=== PATIENT | male | born 1950 | race Caucasian/White ===

== ENCOUNTER 2020-04-09 17:53 | Inpatient (IN) ==
[2020-04-09] MEDS ORDERED: CEFEPIME 2,000 MG/20 ML VIAL IV STA (18:10)
[2020-04-09] MEDS ORDERED: ACETAMINOPHEN 500 MG TAB PO STA (18:10)
[2020-04-09] MEDS ORDERED: SODIUM CHLORIDE 0.9% 1000ML 1,000 ML IV SCH (18:15)
--- NOTE | 2020-04-09 18:15 | Emergency Department Note ---
Impression & Plan Weakness, Anemia, Fever, Babesiosis ED Provider Note NAME: ELLY CHING AGE: 69 SEX: M : 1950 ARRIVES VIA: Walk-In INFORMANT: [Patient] ED PROVIDER(S): [Rudy Pugh MD] CHIEF COMPLAINT: Weakness and chills HISTORY OF PRESENT ILLNESS: The patient is a 69-year-old male who states he has felt poorly since this March 15, he has been sick for 15 days. He has had weakness, chills, fatigue. His body and joints ache. No stuffy nose, no sore throat, no cough or cold or congestion. No shortness of breath. No persistent nausea, no diarrhea, no urinary complaints. He has not noticed a rash. No known tick bites. The patient has had no known coronavirus exposures. The patient states that he has had symptoms like this on and off for a year and a half, no work-up has found his issue. He is here today because he again feels poorly and is hoping we can determine the source for his complaints. REVIEW OF SYSTEMS: See HPI for pertinent positives and negatives. A total of ten systems were reviewed and were otherwise negative. PMHx/PSHx: See Below SOCIAL HISTORY: See Below. PHYSICAL EXAM: GENERAL: Patient is in no acute distress. HEENT: No acute trauma, normocephalic atraumatic, mucous membranes moist, no nasal congestion, no scleral icterus. NECK: No stridor, no adenopathy, no meningismus, trachea is midline. LUNGS: No obvious wheeze, no respiratory distress, no accessory muscle use. Normal respiratory rate. HEART: Regular rate and rhythm, equal pulses in both upper extremities. ABDOMEN: Soft, nontender, bowel sounds positive, no hernias, no peritonitis. EXTREMITIES: No cyanosis or edema, full range of motion of all the joints without pain or difficulty, no signs for acute trauma. NEUROLOGIC: Oriented x 3, no acute motor or sensory deficits, no focal weakness. SKIN: No rash, no jaundice, no diaphoresis. Rectal: Brown stool, trace heme positive. DIFFERENTIAL DIAGNOSIS: Sepsis, UTI, pneumonia, metabolic, coronavirus, Lyme disease, anaplasmosis, electrolyte abnormalities, cardiac sources, intracerebral event, toxicologic, neurologic, as well as other pathologies. EMERGENCY DEPARTMENT COURSE/PROCEDURES: ECG: Indication was weakness. The ECG shows a normal sinus rhythm with a rate of 73. There is no ST elevation, no PVCs. The QTc is 423. Continuous Cardiac Monitoring: An order was placed for continuous cardiac monitoring. The monitor shows a rate of 85 with normal sinus rhythm. MEDICAL DECISION MAKING: There is no leukocytosis. The patient is quite anemic. This is a significant drop for him looking back at previous testing. There is a normal platelet count. No coagulopathy. Renal panel testing shows some renal insufficiency which seems relatively baseline looking back at previous testing. Lactic acid level was not elevated making sepsis less likely. Procalcitonin level was somewhat elevated. No worrisome liver enzyme elevation. Lyme disease testing did return negative. Urinalysis does not show any evidence for infection. Chest film does not show pneumonia or CHF. I did speak with pathology, the findings on the blood smear were suggestive of babesiosis. The patient received IV saline for hydration. He was empirically given IV cefepime for coverage. Once the findings of babesiosis were seen, he received IV Zithromax and oral atovaquone. The patient was given oral Tylenol for his fever. I did perform a rectal exam, this was trace heme positive but his stool was brown. The patient presents with flulike symptoms. He appears to have babesiosis as the cause for his complaints. I do think given the significant anemia, and given his history that a hospitalization would be warranted. I did speak to the patient and case management. The on-call hospitalist has been consulted. Of note, a rapid coronavirus test was done, this returned negative. Past Med/Surg History Medical History HTN (hypertension) Left knee DJD (Acute) NSTEMI (non-ST elevated myocardial infarction) Family History Other Family history non-contributory Kidney disease Social History Smoking Status: Former smoker Hx Alcohol Use: Yes Alcohol type: beer Hx Substance Use: No Preferred Language: Arabic Communication Ability: Effective Administrative Services Assistant Required: Yes Beliefs That Will Affect Care: None marital status: Current Living Situation: Spouse Feels Safe at Home: Yes Allergies Allergies Allergy/AdvReac Type Severity Reaction Status Date / Time No Known Allergies Allergy Unverified 04/09/20 21:35 Home Meds Home Medications Medication Instructions Recorded Confirmed alprazolam 0.25 mg PO BID PRN 09/24/18 04/09/20 amlodipine 5 mg PO DAILY 09/24/18 04/09/20 hydrochlorothiazide 25 mg PO DAILY 09/24/18 04/09/20 metformin 500 mg PO BID 09/24/18 04/09/20 multivitamin [Multiple Vitamins] 1 tab PO DAILY 09/24/18 04/09/20 allopurinol [Zyloprim] 100 mg PO DAILY 04/09/20 04/09/20 aspirin [Aspir-81] 81 mg PO DAILY 04/09/20 04/09/20 atorvastatin [Lipitor] 20 mg PO DAILY 04/09/20 04/09/20 clonidine [[id number]] 1 patch TOPICAL WK 04/09/20 04/09/20 clopidogrel [Plavix] 75 mg PO DAILY 04/09/20 04/09/20 linagliptin [Tradjenta] 5 mg PO DAILY 04/09/20 04/09/20 Previous Rx's Medication Instructions Recorded lisinopril 20 mg PO DAILY #30 tab 09/25/18 Results & Data (ED) Vital Signs Vital Signs - 24 hr 04/09/20 17:55 04/09/20 18:45 04/09/20 19:02 Temperature 37.9 C H Temperature Source Oral Pulse Rate 85 74 Pulse Rate [Apical] 75 Pulse Rate from SpO2 Sensor Respiratory Rate 18 18 20 Respiratory Effort / Characteristics Non-Labored Non-Labored Spontaneous Respiratory Depth Normal Respiratory Pattern Regular Blood Pressure 134/69 Blood Pressure Mean 90 Blood Pressure Position Sitting Pulse Oximetry 99 100 Oxygen Delivery Method Room Air Room Air Sepsis Recent Fever Within 48 Hours No Sepsis New/Unexplained Change in Mental Status No Sepsis Action Taken by Nursing No Action Required 04/09/20 19:03 04/09/20 19:15 04/09/20 19:30 Temperature Temperature Source Pulse Rate 71 76 78 Pulse Rate [Apical] Pulse Rate from SpO2 Sensor 72 Respiratory Rate 23 21 24 Respiratory Effort / Characteristics Respiratory Depth Respiratory Pattern Blood Pressure 115/59 L 124/60 123/64 Blood Pressure Mean 74 83 72 Blood Pressure Position Pulse Oximetry 99 100 98 Oxygen Delivery Method Sepsis Recent Fever Within 48 Hours Sepsis New/Unexplained Change in Mental Status Sepsis Action Taken by Nursing 04/09/20 19:52 04/09/20 20:00 04/09/20 20:45 Temperature 37.5 C Temperature Source Oral Pulse Rate 78 75 69 Pulse Rate [Apical] Pulse Rate from SpO2 Sensor 75 70 Respiratory Rate 24 24 18 Respiratory Effort / Characteristics Respiratory Depth Respiratory Pattern Blood Pressure 101/51 L 105/42 L 124/67 Blood Pressure Mean 65 57 87 Blood Pressure Position Pulse Oximetry 100 99 100 Oxygen Delivery Method Sepsis Recent Fever Within 48 Hours Sepsis New/Unexplained Change in Mental Status Sepsis Action Taken by Nursing 04/09/20 21:30 Temperature Temperature Source Pulse Rate 80 Pulse Rate [Apical] Pulse Rate from SpO2 Sensor Respiratory Rate 20 Respiratory Effort / Characteristics Respiratory Depth Respiratory Pattern Blood Pressure Blood Pressure Mean Blood Pressure Position Pulse Oximetry 99 Oxygen Delivery Method Room Air Sepsis Recent Fever Within 48 Hours Sepsis New/Unexplained Change in Mental Status Sepsis Action Taken by [facility] Medications Current Medication List: was personally reviewed by me Laboratory Data Attestation: I reviewed the patient's lab results. Result diagrams: 04/09/20 18:45 04/09/20 18:45 Lab Results 04/09/20 04/09/20 04/09/20 Range/Units 18:45 18:45 18:45 WBC 5.71 (4.8-10.8) K/uL RBC 2.78 L (4.7-6.1) M/uL Hgb 8.8 L (14.0-18.0) g/dL Hct 25.8 L (42-52) % MCV 92.8 (80-100) fL MCH 31.7 (25-34) pg MCHC 34.1 (32-36) g/dL RDW Std Deviation 53.3 H (36.4-46.3) fL RDW Coeff of Shikha 15.8 H (11.5-14.5) % Plt Count 223 (130-400) K/uL MPV 10.2 (7.4-10.4) fL Immature Gran % (Auto) 0.9 % Neut % (Auto) 59.8 % Lymph % (Auto) 26.3 % [place] % (Auto) 12.1 % Eos % (Auto) 0.7 % Baso % (Auto) 0.2 % Neut # (Auto) 3.42 (1.4-6.5) K/uL Lymph # (Auto) 1.50 (1.2-3.4) K/uL [place] # (Auto) 0.69 H (0.11-0.59) K/uL Eos # (Auto) 0.04 (0-0.5) K/uL Baso # (Auto) 0.01 (0-0.2) K/uL Immature Gran # (Auto) 0.05 H (0.00-0.02) K/uL Blood Smear Review PT 10.9 (9.0-12.0) Seconds INR 1.0 (0.9-1.1) APTT 31.0 (21.0-31.0) Seconds PTT Ratio 1.1 Sodium 135 L (136-145) mmol/L Potassium 5.0 (3.5-5.1) mmol/L Chloride 107 (98-107) mmol/L Carbon Dioxide 20 L (21-32) mmol/L Anion Gap 7.0 (3-11) BUN 77 H (7-18) mg/dl Creatinine 2.97 H (0.6-1.4) mg/dl Est Cr Clr Drug Dosing 21.6 ml/min Est GFR ( Amer) 23.4 Est GFR (Non-Af Amer) 20.2 BUN/Creatinine Ratio 25.9 H (10-20) Glucose 116 H (70-99) mg/dl Lactate (0.4-2.0) mmol/L Calcium 8.3 L (8.5-10.1) mg/dl Magnesium 3.0 H (1.8-2.4) mg/dl Total Bilirubin 1.4 H (0.2-1) mg/dl AST 15 (15-37) U/L ALT 26 (12-78) U/L Alkaline Phosphatase 75 (45-117) U/L Troponin I < 0.015 (0-0.045) ng/ml Total Protein 7.5 (6.4-8.2) gm/dl Albumin 3.5 (3.4-5.0) gm/dl Globulin 4.0 (2.5-4.0) gm/dl Albumin/Globulin Ratio 0.9 (0.9-2) Procalcitonin (0-0.5) ng/ml Urine Color Urine Appearance (Clear) Urine pH (4.5-7.5) Ur Specific [place] (1.000-1.030) Urine Protein (Negative) Urine Glucose (UA) (Negative) Urine Ketones (Negative) Urine Blood (Negative) Urine Nitrite (Negative) Urine Bilirubin (Negative) Urine Urobilinogen (Negative) Ur Leukocyte Esterase (Negative) Lyme Disease IgG Ab (Negative) Lyme Disease IgM Ab (Negative) COVID-19 PCR (Negative) 04/09/20 04/09/20 04/09/20 Range/Units 18:45 18:45 19:53 WBC (4.8-10.8) K/uL RBC (4.7-6.1) M/uL Hgb (14.0-18.0) g/dL Hct (42-52) % MCV (80-100) fL MCH (25-34) pg MCHC (32-36) g/dL RDW Std Deviation (36.4-46.3) fL RDW Coeff of Shikha (11.5-14.5) % Plt Count (130-400) K/uL MPV (7.4-10.4) fL Immature Gran % (Auto) % Neut % (Auto) % Lymph % (Auto) % [place] % (Auto) % Eos % (Auto) % Baso % (Auto) % Neut # (Auto) (1.4-6.5) K/uL Lymph # (Auto) (1.2-3.4) K/uL [place] # (Auto) (0.11-0.59) K/uL Eos # (Auto) (0-0.5) K/uL Baso # (Auto) (0-0.2) K/uL Immature Gran # (Auto) (0.00-0.02) K/uL Blood Smear Review PT (9.0-12.0) Seconds INR (0.9-1.1) APTT (21.0-31.0) Seconds PTT Ratio Sodium (136-145) mmol/L Potassium (3.5-5.1) mmol/L Chloride (98-107) mmol/L Carbon Dioxide (21-32) mmol/L Anion Gap (3-11) BUN (7-18) mg/dl Creatinine (0.6-1.4) mg/dl Est Cr Clr Drug Dosing ml/min Est GFR ( Amer) Est GFR (Non-Af Amer) BUN/Creatinine Ratio (10-20) Glucose (70-99) mg/dl Lactate 1.4 (0.4-2.0) mmol/L Calcium (8.5-10.1) mg/dl Magnesium (1.8-2.4) mg/dl Total Bilirubin (0.2-1) mg/dl AST (15-37) U/L ALT (12-78) U/L Alkaline Phosphatase (45-117) U/L Troponin I (0-0.045) ng/ml Total Protein (6.4-8.2) gm/dl Albumin (3.4-5.0) gm/dl Globulin (2.5-4.0) gm/dl Albumin/Globulin Ratio (0.9-2) Procalcitonin 1.09 H (0-0.5) ng/ml Urine Color Yellow Urine Appearance Clear (Clear) Urine pH 5.0 (4.5-7.5) Ur Specific [place] 1.015 (1.000-1.030) Urine Protein Negative (Negative) Urine Glucose (UA) Negative (Negative) Urine Ketones Negative (Negative) Urine Blood Negative (Negative) Urine Nitrite Negative (Negative) Urine Bilirubin Negative (Negative) Urine Urobilinogen Negative (Negative) Ur Leukocyte Esterase Negative (Negative) Lyme Disease IgG Ab Negative (Negative) Lyme Disease IgM Ab Negative (Negative) COVID-19 PCR (Negative) 04/09/20 Range/Units Unknown WBC (4.8-10.8) K/uL RBC (4.7-6.1) M/uL Hgb (14.0-18.0) g/dL Hct (42-52) % MCV (80-100) fL MCH (25-34) pg MCHC (32-36) g/dL RDW Std Deviation (36.4-46.3) fL RDW Coeff of Shikha (11.5-14.5) % Plt Count (130-400) K/uL MPV (7.4-10.4) fL Immature Gran % (Auto) % Neut % (Auto) % Lymph % (Auto) % [place] % (Auto) % Eos % (Auto) % Baso % (Auto) % Neut # (Auto) (1.4-6.5) K/uL Lymph # (Auto) (1.2-3.4) K/uL [place] # (Auto) (0.11-0.59) K/uL Eos # (Auto) (0-0.5) K/uL Baso # (Auto) (0-0.2) K/uL Immature Gran # (Auto) (0.00-0.02) K/uL Blood Smear Review PT (9.0-12.0) Seconds INR (0.9-1.1) APTT (21.0-31.0) Seconds PTT Ratio Sodium (136-145) mmol/L Potassium (3.5-5.1) mmol/L Chloride (98-107) mmol/L Carbon Dioxide (21-32) mmol/L Anion Gap (3-11) BUN (7-18) mg/dl Creatinine (0.6-1.4) mg/dl Est Cr Clr Drug Dosing ml/min Est GFR ( Amer) Est GFR (Non-Af Amer) BUN/Creatinine Ratio (10-20) Glucose (70-99) mg/dl Lactate (0.4-2.0) mmol/L Calcium (8.5-10.1) mg/dl Magnesium (1.8-2.4) mg/dl Total Bilirubin (0.2-1) mg/dl AST (15-37) U/L ALT (12-78) U/L Alkaline Phosphatase (45-117) U/L Troponin I (0-0.045) ng/ml Total Protein (6.4-8.2) gm/dl Albumin (3.4-5.0) gm/dl Globulin (2.5-4.0) gm/dl Albumin/Globulin Ratio (0.9-2) Procalcitonin (0-0.5) ng/ml Urine Color Urine Appearance (Clear) Urine pH (4.5-7.5) Ur Specific [place] (1.000-1.030) Urine Protein (Negative) Urine Glucose (UA) (Negative) Urine Ketones (Negative) Urine Blood (Negative) Urine Nitrite (Negative) Urine Bilirubin (Negative) Urine Urobilinogen (Negative) Ur Leukocyte Esterase (Negative) Lyme Disease IgG Ab (Negative) Lyme Disease IgM Ab (Negative) COVID-19 PCR NEGATIVE (Negative) Administered Medications Discontinued Medications Acetaminophen (Tylenol) 1,000 mg PO NOW STA Stop: 04/09/20 18:11 Last Admin: 04/09/20 18:59 Dose: 1,000 mg Documented by: [id number] Atovaquone (Mepron) 750 mg PO NOW ONE Stop: 04/09/20 20:01 Last Admin: 04/09/20 20:46 Dose: 750 mg Documented by: [id number] Sodium Chloride (Nss 1000ml) 1,000 mls @ 999 mls/hr IV .[id number] [id number] Stop: 04/09/20 19:10 Last Infusion: 04/09/20 20:00 Dose: 0 mls/hr Documented by: [id number] Admin: 04/09/20 18:58 Dose: 999 mls/hr Documented by: [id number] Cefepime HCl (Maxipime) 2,000 mg in 20 mls @ 5 mls/min IV NOW STA; Protocol Stop: 04/09/20 18:13 Last Admin: 04/09/20 18:58 Dose: 5 mls/min Documented by: [id number] Azithromycin 500 mg/ Dextrose 255 mls @ 127.5 mls/hr IV NOW STA Stop: 04/09/20 21:51 Last Admin: 04/09/20 20:46 Dose: 127.5 mls/hr Documented by: [id number] Imaging Data Radiologist's Impression: XR chest 1V portable CLINICAL HISTORY: SEPSIS COMPARISON STUDY: Chest radiograph and chest CT September 23, 2018. FINDINGS: Lung volumes are normal. Lungs are clear. There is no pneumothorax or pleural effusion. Cardiac size is normal. Mediastinal contours are normal. There is no evidence for pulmonary edema. Incidental note is made of a left ar throplasty and postoperative findings within the proximal right humerus. The appearance of the chest is unchanged. IMPRESSION: No acute cardiopulmonary findings. Blood Pressure Blood Pressure Findings: Normal blood pressure Blood Pressure Disposition: further management by hospitalist Discharge Plan Visit Data Chief Complaint: Weakness Stated Complaint: WEAK ED Provider: Rudy Pugh Discharge Problem: Weakness, Anemia, Fever, Babesiosis Patient Disposition: Admitted As Inpatient Condition: Fair Forms Stand Alone Forms: [facility] Prescriptions Prescriptions: No Action metformin 500 mg tablet 500 mg PO BID RF: 0 amlodipine 5 mg tablet 5 mg PO DAILY RF: 0 alprazolam 0.25 mg tablet 0.25 mg PO BID PRN (Reason: Anxiety) RF: 0 hydrochlorothiazide 25 mg tablet 25 mg PO DAILY RF: 0 multivitamin [Multiple Vitamins] Tablet 1 tab PO DAILY RF: 0 lisinopril 20 mg tablet 20 mg PO DAILY Qty: 30 RF: 0 atorvastatin [Lipitor] 20 mg tablet 20 mg PO DAILY RF: 0 clonidine [[id number]-PHB-1] 0.2 mg/24 hr patch weekly 1 patch topical WK RF: 0 clopidogrel [Plavix] 75 mg tablet 75 mg PO DAILY RF: 0 allopurinol [Zyloprim] 100 mg tablet 100 mg PO DAILY RF: 0 Tradjenta 5 mg tablet 5 mg PO DAILY RF: 0 aspirin [Aspir-81] 81 mg Tablet,Delayed Release (Dr/Ec) 81 mg PO DAILY RF: 0 Referrals Referrals: Michael Lozano [Primary Care Provider] - Discharge Problem: Anemia Qualifiers: Anemia type: unspecified type Qualified Code(s): D64.9 - Anemia, unspecified Fever Qualifiers: Fever type: unspecified Qualified Code(s): R50.9 - Fever, unspecified
[2020-04-09 19:03] LABS: Hematocrit (blood only) 25.8 % (42-52); Hemoglobin 8.8 g/dL (14.0-18.0); Mean Corpuscular Hemoglobin 31.7 pg (25-34); Mean Corpuscular Hgb Conc 34.1 g/dL (32-36); Mean Corpuscular Volume 92.8 fL (80-100); Mean Platelet Volume 10.2 fL (7.4-10.4); Platelet Count 223 K/uL (130-400); RDW Coefficient of Variation 15.8 % (11.5-14.5); RDW Standard Deviation 53.3 fL (36.4-46.3); Red Blood Count 2.78 M/uL (4.7-6.1); White Blood Count 5.71 K/uL (4.8-10.8)
[2020-04-09 19:14] LABS: Partial Thromboplastin Ratio 1.1; Prothrombin Time 10.9 Seconds (9.0-12.0)
[2020-04-09 19:20] LABS: Alanine Aminotransferase 26 U/L (12-78); Albumin Level 3.5 gm/dl (3.4-5.0); Aspartate Aminotransferase 15 U/L (15-37); BUN Creatinine Ratio 25.9 (10-20); Blood Urea Nitrogen 77 mg/dl (7-18); Calcium 8.3 mg/dl (8.5-10.1); Carbon Dioxide 20 mmol/L (21-32); Chloride 107 mmol/L (98-107); Creatinine Clr Calc Pharmacy 21.6 ml/min; Est GFR (African American) 23.4; Est GFR (Non-African American) 20.2; Glucose 116 mg/dl (70-99); Sodium 135 mmol/L (136-145)
[2020-04-09 19:25] LABS: Albumin Globulin Ratio 0.9 (0.9-2); Alkaline Phosphatase 75 U/L (45-117); Bilirubin,Total 1.4 mg/dl (0.2-1); Total Protein 7.5 gm/dl (6.4-8.2); Troponin I < 0.015 ng/ml (0-0.045)
--- NOTE | 2020-04-09 19:28 | XRay Report ---
XR chest 1V portable CLINICAL HISTORY: SEPSIS COMPARISON STUDY: Chest radiograph and chest CT September 23, 2018. FINDINGS: Lung volumes are normal. Lungs are clear. There is no pneumothorax or pleural effusion. Car diac size is normal. Mediastinal contours are normal. There is no evidence for pulmonary edema. Incid ental note is made of a left arthroplasty and postoperative findings within the proximal right humeru s. The appearance of the chest is unchanged. IMPRESSION: No acute cardiopulmonary findings. ACT 112: Negative or not required by law. Electronically signed by: Clemente Saez M.D. 04/09/2020 7:27 PM
[2020-04-09 19:50] LABS: Procalcitonin 1.09 ng/ml (0-0.5)
[2020-04-09] MEDS ORDERED: AZITHROMYCIN 500 MG in DEXTROSE 5% 250 ML IV STA (19:52)
[2020-04-09 19:55] LABS: Basophils # (auto) 0.01 K/uL (0-0.2); Basophils % (auto) 0.2 %; Eosinophils # (auto) 0.04 K/uL (0-0.5); Eosinophils % (auto) 0.7 %; Immature Granulocytes # (auto) 0.05 K/uL (0.00-0.02); Immature Granulocytes % (auto) 0.9 %; Lymphocytes % (auto) 26.3 %; Monocytes # (auto) 0.69 K/uL (0.11-0.59); Monocytes % (auto) 12.1 %; Neutrophils # (auto) 3.42 K/uL (1.4-6.5); Neutrophils % (auto) 59.8 %
[2020-04-09] MEDS ORDERED: ATOVAQUONE 750 MG/5 ML UDC PO ONE (20:00)
[2020-04-09 20:03] LABS: Lyme Ab IgG w/WB Rflx Negative (Negative); Lyme Ab IgM w/WB Rflx Negative (Negative)
[2020-04-09 20:23] LABS: Appearance Urine Clear (Clear); Bilirubin Urine Negative (Negative); Blood Urine Negative (Negative); Color Urine Yellow; Glucose Urine UA Negative (Negative); Ketones Urine Negative (Negative); Leukocyte Esterase Urine Negative (Negative); Nitrite Urine Negative (Negative); Protein Urine Negative (Negative); Specific Gravity Urine 1.015 (1.000-1.030); Urobilinogen Urine Negative (Negative)
--- NOTE | 2020-04-09 22:13 | History & Physical Report ---
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 Patient with remote history of known tick bites, none recently reported. No international travel history. He is presently afebrile, HD stable and non-toxic in appearance. No respiratory complaints. Labs reveal normochromic/normocytic anemia with Hgb=8.8, Hct=25.8 (down from 15.5 and 44.9, respectively in September 2018). Other laboratory abnormalities include Mh=162, CAROL with BUN=77 and Cr=2.97. Tbili=1.4 and Procalcitonin=1.09. Lyme IgM and IgG is negative. No schistocytes noted on my review of slide. -Admit to medical floor -Awaiting results of Babesia microti IgG and IgM -Obtain parasite load, blood smear -Check Anaplasmosis DNA -Babesiosis DNA PCR has also been sent - this reportedly takes appx 4 days and will be resulted in Miscellaneous -Will treat with Atovaquone 750mg po BID and Azithromycin 500mg po BID -Monitor CBC and LFTs for concern for hemolysis. If patient's anemia clinically worsens or he has a high parasite load he may need an exchange transfusion Present on Admission?: Yes (2) HTN (hypertension): Blood pressure well controlled at present. Patient was previously admitted for hypotension thought to be secondary to medication effects + dehydration -Hold HCTZ and Lisinopril due to elevation in BUN and Cr -Continue Amlodipine -Continue Clonidine patch -Continue to monitor Present on Admission?: Yes (3) CAROL (acute kidney injury): Elevated BUN and Cr to 77 and 2.97 (prior 27 and 1.47, respectively in september 2018). ?prerenal azotemia vs result from Babesiosis infection -IVF, NSS at 80mL/hr x 2 liters -Repeat labs in AM -Avoid nephrotoxic agents -Renal dosing where appropriate Present on Admission?: Yes (4) HLD (hyperlipidemia): Chronic -Continue Atorvastatin 20mg po daily Present on Admission?: Yes (5) DMII (diabetes mellitus, type 2): Chronic. Blood sugar well controlled at 116 currently. Last HbgA1C in September 2018 = 6.8 -Hold Metformin, Linagliptin while inpatient -Check HgbA1C -Lantus 5u BID with ISS, goal blood sugar 100 - 140 F/E/N - NSS at 80mL/hr x 2 liters, electrolytes WNL, AHA/CC diet as tolerated Ppx - Low risk for DVT Code - Full Dispo - Admit to medical floor Present on Admission?: Yes Admission and Anticipated Discharge Date Admission Date: 04/09/20 Anticipated date of discharge: 04/11/20 History of Present Illness Chief Complaint: weakness, fatigue, fevers Primary Care Provider: Michael Blake Boateng is a pleasant 69yo C male with history of HTN, HLP, DM. He reports appx one year of fatigue and episodic fevers/weakness. These episodes have become more intense and frequent since 15 March 2020. He reports malaise, diffuse weakness, fevers, chills, body aches and stiff joints. Patient spends a lot of time outdoors camping at [place]. He has had tick bites in the past but none recently. He denies CP/SOB/cough/loss of taste or smell. He has not travelled recently nor been in contact with any Covid-19 positive individuals. 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 He was administered Atovaquone and Azithromycin in the ER. Rapid testing for SARS-CoV-2 - NEGATIVE ER Course: Tylenol 1gm, Atovaquone 750mg, Azithromycin 500mg IV, Cefepime 2gm IV, NSS Allergies Allergy/AdvReac Type Severity Reaction Status Date / Time No Known Allergies Allergy Unverified 04/09/20 21:35 Home Medications Home Medications Medication Instructions Recorded Confirmed Type alprazolam 0.25 mg PO BID PRN 09/24/18 04/09/20 History amlodipine 5 mg PO DAILY 09/24/18 04/09/20 History hydrochlorothiazide 25 mg PO DAILY 09/24/18 04/09/20 History metformin 500 mg PO BID 09/24/18 04/09/20 History multivitamin [Multiple Vitamins] 1 tab PO DAILY 09/24/18 04/09/20 History lisinopril 20 mg PO DAILY #30 tab 09/25/18 04/09/20 Rx allopurinol [Zyloprim] 100 mg PO DAILY 04/09/20 04/09/20 History aspirin [Aspir-81] 81 mg PO DAILY 04/09/20 04/09/20 History atorvastatin [Lipitor] 20 mg PO DAILY 04/09/20 04/09/20 History clonidine [Gvfkhqev-MSJ-1] 1 patch TOPICAL WK 04/09/20 04/09/20 History clopidogrel [Plavix] 75 mg PO DAILY 04/09/20 04/09/20 History linagliptin [Tradjenta] 5 mg PO DAILY 04/09/20 04/09/20 History Past Med/Surg History Medical History (Updated 04/09/20 @ 22:39 by Lucía Valerio DO) DMII (diabetes mellitus, type 2) HLD (hyperlipidemia) HTN (hypertension) Left knee DJD (Acute) NSTEMI (non-ST elevated myocardial infarction) Prolonged Q-T interval on ECG Surgical History (Updated 04/09/20 @ 22:09 by Lucía Valerio DO) No significant past surgical history Family History Other Family history non-contributory Kidney disease Social History Smoking Status: Former smoker Hx Alcohol Use: Yes Alcohol type: beer Hx Substance Use: No Preferred Language: Dutch Communication Ability: Effective Rn Emergency Room Required: Yes Beliefs That Will Affect Care: None marital status: Current Living Situation: Spouse Feels Safe at Home: Yes Review of Systems Review of Systems: All systems reviewed & are unremarkable except as noted in HPI & below Physical Exam Physical Exam: General: patient resting comfortably, NAD, non-toxic in appearance, AA&O x 4 Skin: warm, dry, intact, no rashes or lesions HEENT: NC/AT, PERRL, EOMI, slight scleral icterus, conjunctiva without injection, external ear normal to inspection and nontender, nares patent, moist mucus membranes, dentition intact, no oropharyngeal lesions, neck supple, trachea midline, no LAD, no thyromegaly, no JVD Heart: +S1/S2, regular, no m/r/g Lungs: equal air entry bilaterally, no rales/rhonchi/wheezes Abd: +BS, soft, NT/ND, no masses/organomegaly/ascites Ext: warm, 2+ pulses in UE/LE bilaterally, no clubbing/cyanosis or edema Neuro: nonfocal, patient AA&O x 4, speech intact, no facial droop, moving all extremities on command with equal strength 5/5 Results & Data Results & Data ([facility]) Vital Signs (Past 12 Hours) Vital Signs Temp Pulse Pulse Resp BP Pulse Ox 04/09/20 21:30 80 20 99 04/09/20 20:45 69 18 124/67 100 04/09/20 20:00 75 24 105/42 L 99 04/09/20 19:52 37.5 C 78 24 101/51 L 100 04/09/20 19:30 78 24 123/64 98 04/09/20 19:15 76 21 124/60 100 04/09/20 19:03 71 23 115/59 L 99 04/09/20 19:02 74 20 04/09/20 18:45 75 18 100 04/09/20 17:55 37.9 C H 85 18 134/69 99 Laboratory Results Lab Results 04/09/20 04/09/20 04/09/20 Range/Units 18:45 18:45 18:45 WBC 5.71 (4.8-10.8) K/uL RBC 2.78 L (4.7-6.1) M/uL Hgb 8.8 L (14.0-18.0) g/dL Hct 25.8 L (42-52) % MCV 92.8 (80-100) fL MCH 31.7 (25-34) pg MCHC 34.1 (32-36) g/dL RDW Std Deviation 53.3 H (36.4-46.3) fL RDW Coeff of Shikha 15.8 H (11.5-14.5) % Plt Count 223 (130-400) K/uL MPV 10.2 (7.4-10.4) fL Immature Gran % (Auto) 0.9 % Neut % (Auto) 59.8 % Lymph % (Auto) 26.3 % [place] % (Auto) 12.1 % Eos % (Auto) 0.7 % Baso % (Auto) 0.2 % Neut # (Auto) 3.42 (1.4-6.5) K/uL Lymph # (Auto) 1.50 (1.2-3.4) K/uL [place] # (Auto) 0.69 H (0.11-0.59) K/uL Eos # (Auto) 0.04 (0-0.5) K/uL Baso # (Auto) 0.01 (0-0.2) K/uL Immature Gran # (Auto) 0.05 H (0.00-0.02) K/uL Blood Smear Review PT 10.9 (9.0-12.0) Seconds INR 1.0 (0.9-1.1) APTT 31.0 (21.0-31.0) Seconds PTT Ratio 1.1 Sodium 135 L (136-145) mmol/L Potassium 5.0 (3.5-5.1) mmol/L Chloride 107 (98-107) mmol/L Carbon Dioxide 20 L (21-32) mmol/L Anion Gap 7.0 (3-11) BUN 77 H (7-18) mg/dl Creatinine 2.97 H (0.6-1.4) mg/dl Est Cr Clr Drug Dosing 21.6 ml/min Est GFR ( Amer) 23.4 Est GFR (Non-Af Amer) 20.2 BUN/Creatinine Ratio 25.9 H (10-20) Glucose 116 H (70-99) mg/dl Lactate (0.4-2.0) mmol/L Calcium 8.3 L (8.5-10.1) mg/dl Magnesium 3.0 H (1.8-2.4) mg/dl Total Bilirubin 1.4 H (0.2-1) mg/dl AST 15 (15-37) U/L ALT 26 (12-78) U/L Alkaline Phosphatase 75 (45-117) U/L Troponin I < 0.015 (0-0.045) ng/ml Total Protein 7.5 (6.4-8.2) gm/dl Albumin 3.5 (3.4-5.0) gm/dl Globulin 4.0 (2.5-4.0) gm/dl Albumin/Globulin Ratio 0.9 (0.9-2) Procalcitonin (0-0.5) ng/ml Urine Color Urine Appearance (Clear) Urine pH (4.5-7.5) Ur Specific [place] (1.000-1.030) Urine Protein (Negative) Urine Glucose (UA) (Negative) Urine Ketones (Negative) Urine Blood (Negative) Urine Nitrite (Negative) Urine Bilirubin (Negative) Urine Urobilinogen (Negative) Ur Leukocyte Esterase (Negative) Lyme Disease IgG Ab (Negative) Lyme Disease IgM Ab (Negative) COVID-19 PCR (Negative) 04/09/20 04/09/20 04/09/20 Range/Units 18:45 18:45 19:53 WBC (4.8-10.8) K/uL RBC (4.7-6.1) M/uL Hgb (14.0-18.0) g/dL Hct (42-52) % MCV (80-100) fL MCH (25-34) pg MCHC (32-36) g/dL RDW Std Deviation (36.4-46.3) fL RDW Coeff of Shikha (11.5-14.5) % Plt Count (130-400) K/uL MPV (7.4-10.4) fL Immature Gran % (Auto) % Neut % (Auto) % Lymph % (Auto) % [place] % (Auto) % Eos % (Auto) % Baso % (Auto) % Neut # (Auto) (1.4-6.5) K/uL Lymph # (Auto) (1.2-3.4) K/uL [place] # (Auto) (0.11-0.59) K/uL Eos # (Auto) (0-0.5) K/uL Baso # (Auto) (0-0.2) K/uL Immature Gran # (Auto) (0.00-0.02) K/uL Blood Smear Review PT (9.0-12.0) Seconds INR (0.9-1.1) APTT (21.0-31.0) Seconds PTT Ratio Sodium (136-145) mmol/L Potassium (3.5-5.1) mmol/L Chloride (98-107) mmol/L Carbon Dioxide (21-32) mmol/L Anion Gap (3-11) BUN (7-18) mg/dl Creatinine (0.6-1.4) mg/dl Est Cr Clr Drug Dosing ml/min Est GFR ( Amer) Est GFR (Non-Af Amer) BUN/Creatinine Ratio (10-20) Glucose (70-99) mg/dl Lactate 1.4 (0.4-2.0) mmol/L Calcium (8.5-10.1) mg/dl Magnesium (1.8-2.4) mg/dl Total Bilirubin (0.2-1) mg/dl AST (15-37) U/L ALT (12-78) U/L Alkaline Phosphatase (45-117) U/L Troponin I (0-0.045) ng/ml Total Protein (6.4-8.2) gm/dl Albumin (3.4-5.0) gm/dl Globulin (2.5-4.0) gm/dl Albumin/Globulin Ratio (0.9-2) Procalcitonin 1.09 H (0-0.5) ng/ml Urine Color Yellow Urine Appearance Clear (Clear) Urine pH 5.0 (4.5-7.5) Ur Specific [place] 1.015 (1.000-1.030) Urine Protein Negative (Negative) Urine Glucose (UA) Negative (Negative) Urine Ketones Negative (Negative) Urine Blood Negative (Negative) Urine Nitrite Negative (Negative) Urine Bilirubin Negative (Negative) Urine Urobilinogen Negative (Negative) Ur Leukocyte Esterase Negative (Negative) Lyme Disease IgG Ab Negative (Negative) Lyme Disease IgM Ab Negative (Negative) COVID-19 PCR (Negative) 04/09/20 Range/Units Unknown WBC (4.8-10.8) K/uL RBC (4.7-6.1) M/uL Hgb (14.0-18.0) g/dL Hct (42-52) % MCV (80-100) fL MCH (25-34) pg MCHC (32-36) g/dL RDW Std Deviation (36.4-46.3) fL RDW Coeff of Shikha (11.5-14.5) % Plt Count (130-400) K/uL MPV (7.4-10.4) fL Immature Gran % (Auto) % Neut % (Auto) % Lymph % (Auto) % [place] % (Auto) % Eos % (Auto) % Baso % (Auto) % Neut # (Auto) (1.4-6.5) K/uL Lymph # (Auto) (1.2-3.4) K/uL [place] # (Auto) (0.11-0.59) K/uL Eos # (Auto) (0-0.5) K/uL Baso # (Auto) (0-0.2) K/uL Immature Gran # (Auto) (0.00-0.02) K/uL Blood Smear Review PT (9.0-12.0) Seconds INR (0.9-1.1) APTT (21.0-31.0) Seconds PTT Ratio Sodium (136-145) mmol/L Potassium (3.5-5.1) mmol/L Chloride (98-107) mmol/L Carbon Dioxide (21-32) mmol/L Anion Gap (3-11) BUN (7-18) mg/dl Creatinine (0.6-1.4) mg/dl Est Cr Clr Drug Dosing ml/min Est GFR ( Amer) Est GFR (Non-Af Amer) BUN/Creatinine Ratio (10-20) Glucose (70-99) mg/dl Lactate (0.4-2.0) mmol/L Calcium (8.5-10.1) mg/dl Magnesium (1.8-2.4) mg/dl Total Bilirubin (0.2-1) mg/dl AST (15-37) U/L ALT (12-78) U/L Alkaline Phosphatase (45-117) U/L Troponin I (0-0.045) ng/ml Total Protein (6.4-8.2) gm/dl Albumin (3.4-5.0) gm/dl Globulin (2.5-4.0) gm/dl Albumin/Globulin Ratio (0.9-2) Procalcitonin (0-0.5) ng/ml Urine Color Urine Appearance (Clear) Urine pH (4.5-7.5) Ur Specific [place] (1.000-1.030) Urine Protein (Negative) Urine Glucose (UA) (Negative) Urine Ketones (Negative) Urine Blood (Negative) Urine Nitrite (Negative) Urine Bilirubin (Negative) Urine Urobilinogen (Negative) Ur Leukocyte Esterase (Negative) Lyme Disease IgG Ab (Negative) Lyme Disease IgM Ab (Negative) COVID-19 PCR NEGATIVE (Negative) Diagnostic Findings XR chest 1V portable CLINICAL HISTORY: SEPSIS COMPARISON STUDY: Chest radiograph and chest CT September 23, 2018. FINDINGS: Lung volumes are normal. Lungs are clear. There is no pneumothorax or pleural effusion. Cardiac size is normal. Mediastinal contours are normal. There is no evidence for pulmonary edema. Incidental note is made of a left arthroplasty and postoperative findings within the proximal right humerus. The appearance of the chest is unchanged. IMPRESSION: No acute cardiopulmonary findings. ACT 112: Negative or not required by law. Electronically signed by: Clemente Saez M.D. 04/09/2020 7:27 PM Dictated: 04/09/201925 Transcribed: 04/09/201925 ECG Additional Comments: The study shows NSR at 73bpm, normal axis, DE=491, QRS=86, UVc=038, no acute ischemic changes Code Status & VTE Plan Code Status FULL PG Care Time/CCT Total # of Minutes Spent Total Time Spent with Patient: Total time spent is greater than 50% in coordination of care (as documented) at patient's floor/unit and/or counseling patient: Coding Level of Care Code 39493 Initial Inpt Care Lvl 3 Diagnoses Babesiosis B60.0 HTN (hypertension) I10 Hypertension type: essential hypertension CAROL (acute kidney injury) N17.9 HLD (hyperlipidemia) E78.5 Hyperlipidemia type: unspecified DMII (diabetes mellitus, type 2) E11.9 Diabetes mellitus long-term insulin use: without manager long term care use Diabetes mellitus complication status: without complication (1) HTN (hypertension) Hypertension type: essential hypertension Qualified Code(s): I10 - Essential (primary) hypertension (2) HLD (hyperlipidemia) Hyperlipidemia type: unspecified Qualified Code(s): E78.5 - Hyperlipidemia, unspecified (3) DMII (diabetes mellitus, type 2) Diabetes mellitus manager long term care insulin use: without long-term use Diabetes mellitus complication status: without complication Qualified Code(s): E11.9 - Type 2 diabetes mellitus without complications
[2020-04-10] MEDS ORDERED: GLUCOSE 40% GEL 15 GM TUBE PO PRN (00:16)
[2020-04-10] MEDS ORDERED: DEXTROSE 50% 50 ML SYRINGE IV PRN (00:16)
[2020-04-10] MEDS ORDERED: CARBOHYDRATES FOR HYPOGLYCEMIA PO PRN (00:16)
[2020-04-10] MEDS ORDERED: GLUCAGON FOR INJ 1 MG VIAL SQ PRN (00:16)
[2020-04-10] MEDS ORDERED: GLUCOSE 10 TABS/TUBE PO PRN (00:16)
[2020-04-10] MEDS ORDERED: ONDANSETRON INJ 2 MG/ML 2 ML VIAL IV PRN (00:16)
[2020-04-10] MEDS: SODIUM CHLORIDE 0.9% 1000ML 1,000 ML IV SCH ×2 (00:34→12:57)
[2020-04-10] MEDS: CHECK CLONIDINE PATCH PLACEMENT SCH ×3 (00:34→16:32)
[2020-04-10 06:48] LABS: Basophils # (auto) 0.01 K/uL (0-0.2); Basophils % (auto) 0.2 %; Eosinophils # (auto) 0.01 K/uL (0-0.5); Eosinophils % (auto) 0.2 %; Hematocrit (blood only) 21.4 % (42-52); Hemoglobin 7.6 g/dL (14.0-18.0); Immature Granulocytes # (auto) 0.04 K/uL (0.00-0.02); Immature Granulocytes % (auto) 0.9 %; Lymphocytes # (auto) 1.65 K/uL (1.2-3.4); Lymphocytes % (auto) 37.4 %; Mean Corpuscular Hemoglobin 33.2 pg (25-34); Mean Corpuscular Hgb Conc 35.5 g/dL (32-36); Mean Corpuscular Volume 93.4 fL (80-100); Mean Platelet Volume 9.9 fL (7.4-10.4); Monocytes # (auto) 0.59 K/uL (0.11-0.59); Monocytes % (auto) 13.4 %; Neutrophils # (auto) 2.11 K/uL (1.4-6.5); Neutrophils % (auto) 47.9 %; Platelet Count 167 K/uL (130-400); RDW Standard Deviation 53.8 fL (36.4-46.3); Red Blood Count 2.29 M/uL (4.7-6.1); White Blood Count 4.41 K/uL (4.8-10.8)
[2020-04-10 06:55] LABS: Estimated Average Glucose 105 mg/dl; Hemoglobin A1C 5.3 % (4.5-5.6)
[2020-04-10 07:11] LABS: RBC Morphology Unremarkable
[2020-04-10 07:19] LABS: Albumin Level 2.8 gm/dl (3.4-5.0); BUN Creatinine Ratio 30.9 (10-20); Bilirubin Direct 0.3 mg/dl (0-0.2); Calcium 7.8 mg/dl (8.5-10.1); Creatinine Clr Calc Pharmacy 27.7 ml/min; Est GFR (Non-African American) 30.2; Magnesium 2.7 mg/dl (1.8-2.4); Potassium 4.9 mmol/L (3.5-5.1)
[2020-04-10 07:22] LABS: Bilirubin,Total 1.3 mg/dl (0.2-1); Total Protein 6.6 gm/dl (6.4-8.2)
--- NOTE | 2020-04-10 08:43 | Electrocardiogram Report ---
Test Reason : Blood Pressure : / mmHG Vent. Rate : 073 BPM Atrial Rate : 073 BPM P-R Int : 196 ms QRS Dur : 086 ms QT Int : 384 ms P-R-T Axes : 042 087 050 degrees QTc Int : 423 ms Normal sinus rhythm Normal ECG When compared with ECG of 25-SEP-2018 06:24, No significant change was found Confirmed by Ángel Caro ([id number]) on 04/10/2020 8:43:10 AM Referred By: REFERRED SELF Confirmed By:Ángel Caro
[2020-04-10] MEDS ORDERED: AZITHROMYCIN 500 MG in DEXTROSE 5% 250 ML IV SCH (09:00)
[2020-04-10] MEDS ORDERED: AZITHROMYCIN 250 MG TAB PO SCH (09:00)
[2020-04-10] MEDS ORDERED: hydroCHLOROthiazide 25 MG TAB PO SCH (09:00)
[2020-04-10] MEDS ORDERED: lisinopriL 20 MG TAB PO SCH (09:00)
[2020-04-10] MEDS: INSULIN ASPART 100 UNITS/ML 3 ML PEN SC SCH ×4 (09:16→20:44)
[2020-04-10] MEDS: hydroCHLOROthiazide 25 MG TAB PO SCH (09:19)
[2020-04-10] MEDS: ATORVASTATIN 20 MG TAB PO SCH (09:19)
[2020-04-10] MEDS: INSULIN GLARGINE SOLOSTAR 100 UNITS/ML 3 ML PEN SC SCH ×2 (09:19→20:43)
[2020-04-10] MEDS: CLOPIDOGREL BISULFATE 75 MG TAB PO SCH (09:20)
[2020-04-10] MEDS: MULTIVITAMIN TAB PO SCH (09:20)
[2020-04-10] MEDS: ATOVAQUONE 750 MG/5 ML UDC PO SCH ×2 (09:20→20:42)
[2020-04-10] MEDS: AMLODIPINE BESYLATE 5 MG TAB PO SCH (09:20)
[2020-04-10] MEDS: allopurinoL 100 MG TAB PO SCH (09:21)
[2020-04-10] MEDS: lisinopriL 20 MG TAB PO SCH (09:21)
[2020-04-10] MEDS: ACETAMINOPHEN 325 MG TAB PO PRN (09:30)
[2020-04-10] MEDS ORDERED: VANCOMYCIN CONSULT ACTIVE PRN ×2 (10:43)
[2020-04-10] MEDS ORDERED: VANCOMYCIN HCL 1,750 MG in SODIUM CHLORIDE 0.9% 500 ML IV ONE (11:15)
[2020-04-10 12:20] LABS: Hematocrit (blood only) 21.7 % (42-52); Hemoglobin 7.5 g/dL (14.0-18.0)
--- NOTE | 2020-04-10 13:23 | Pharmacy Report ---
Pharmacy Abx Dose Short Note - Date of Service April 10, 2020 - Assessment & Plan Assessment * 69 year old M admitted for babesiosis - receiving Azithromycin + Atovaquone * Gram positive cocci reported in 1 of 3 sets of blood cxs. Provider initiating IV vancomycin therapy - pharmacy to dose. * Gram positive cocci growing in aerobic bottle of one set. I contacted micro and they report this organism is GPC in chains, thus not likely staph - no serology testing performed. Uncertain if contaminant at this time. * Renal fxn changing. SCr improved over last 24 hrs (2.97 --> 2.13). Baseline renal fxn unclear from [facility] records. Plan Vancomycin * 1750mg x 1 loading dose given (~24mg/kg) * Patient is not a candidate for AUC dosing due to unstable renal fxn * Current estimate of half-life ~24 hrs or less. Will check random level with AM labs tomorrow ~18 hrs after this loading dose. * Goal trough level for bacteremia : 15 to 20 mcg/mL * Plan to redose when level is less than 20. Pharmacy will continue to follow and will adjust dose/frequency as necessary. Thank you.
--- NOTE | 2020-04-10 23:07 | Hospitalist Progress Note ---
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 Patient with remote history of known tick bites, none recently reported. No international travel history. He is presently afebrile, HD stable and non-toxic in appearance. No respiratory complaints. Labs reveal normochromic/normocytic anemia with Hgb=8.8, Hct=25.8 (down from 15.5 and 44.9, respectively in September 2018). Other laboratory abnormalities include Jk=146, CAROL with BUN=77 and Cr=2.97. Tbili=1.4 and Procalcitonin=1.09. Lyme IgM and IgG is negative. No schistocytes noted on my review of slide. -Admit to medical floor -Awaiting results of Babesia microti IgG and IgM -Patient has signs of babesia. will continue to treat as state below. -Babesiosis DNA PCR has also been sent - this reportedly takes appx 4 days and will be resulted in Miscellaneous -Will treat with Atovaquone 750mg po BID and Azithromycin 500mg po BID -Hemoglobin has been stable. will continue to monitor. (2) HTN (hypertension): Blood pressure well controlled at present. Patient was previously admitted for hypotension thought to be secondary to medication effects + dehydration -Hold HCTZ and Lisinopril due to elevation in BUN and Cr -Continue Amlodipine -Continue Clonidine patch -Continue to monitor (3) CAROL (acute kidney injury): Elevated BUN and Cr to 77 and 2.97 (prior 27 and 1.47, respectively in september 2018). ?prerenal azotemia vs result from Babesiosis infection -IVF, NSS at 80mL/hr x 2 liters -Repeat labs in AM -Avoid nephrotoxic agents -Renal dosing where appropriate (4) HLD (hyperlipidemia): Chronic -Continue Atorvastatin 20mg po daily (5) DMII (diabetes mellitus, type 2): Chronic. Blood sugar well controlled at 116 currently. Last HbgA1C in September 2018 = 6.8 -Hold Metformin, Linagliptin while inpatient -Check HgbA1C -Lantus 5u BID with ISS, goal blood sugar 100 - 140 F/E/N - NSS at 80mL/hr x 2 liters, electrolytes WNL, AHA/CC diet as tolerated Ppx - Low risk for DVT Code - Full Dispo - Admit to medical floor Admission and Anticipated Discharge Date Admission Date: April 09, 2020 Subjective Ptient continues to complaint of generalized malaise. He has no new symptoms at this Review of Systems Review of Systems: All systems reviewed & are unremarkable except as noted in HPI & below Physical Exam Physical Exam: General: patient resting comfortably, NAD, non-toxic in appearance, AA&O x 4 Skin: warm, dry, intact, no rashes or lesions HEENT: NC/AT, PERRL, EOMI, slight scleral icterus, conjunctiva without injection, external ear normal to inspection and nontender, nares patent, moist mucus membranes, dentition intact, no oropharyngeal lesions, neck supple, trachea midline, no LAD, no thyromegaly, no JVD Heart: +S1/S2, regular, no m/r/g Lungs: equal air entry bilaterally, no rales/rhonchi/wheezes Abd: +BS, soft, NT/ND, no masses/organomegaly/ascites Ext: warm, 2+ pulses in UE/LE bilaterally, no clubbing/cyanosis or edema Neuro: nonfocal, patient AA&O x 4, speech intact, no facial droop, moving all extremities on command with equal strength 5/5 Results & Data Results & Data ([facility]) Vital Signs (Past 12 Hours) Vital Signs Temp Pulse Resp BP Pulse Ox 04/10/20 15:11 37.4 C 74 17 109/64 99 04/10/20 11:26 37.6 C H PG Care Time/CCT Total # of Minutes Spent Total Time Spent with Patient: Total time spent is greater than 50% in coordination of care (as documented) at patient's floor/unit and/or counseling patient: Coding Level of Care Code 46627 Subseq Hosp Care Lvl 3 Diagnoses Babesiosis B60.0 HTN (hypertension) I10 Hypertension type: essential hypertension CAROL (acute kidney injury) N17.9 HLD (hyperlipidemia) E78.5 Hyperlipidemia type: unspecified DMII (diabetes mellitus, type 2) E11.9 Diabetes mellitus complication status: without complication Diabetes mellitus manager terminal insulin use: without residential use Time Spent (min) 35 (1) DMII (diabetes mellitus, type 2) Diabetes mellitus complication status: without complication Diabetes mellitus manager terminal insulin use: without residential use Qualified Code(s): E11.9 - Type 2 diabetes mellitus without complications (2) HLD (hyperlipidemia) Hyperlipidemia type: unspecified Qualified Code(s): E78.5 - Hyperlipidemia, unspecified (3) HTN (hypertension) Hypertension type: essential hypertension Qualified Code(s): I10 - Essential (primary) hypertension
[2020-04-10] MEDS ORDERED: MELATONIN 3 MG TAB PO PRN (23:27)
[2020-04-10] MEDS: ALPRAZolam 0.25 MG TABLET PO PRN (23:31)
[2020-04-11] MEDS: CHECK CLONIDINE PATCH PLACEMENT SCH ×3 (00:31→16:23)
[2020-04-11 06:41] LABS: Creatinine Clr Calc Pharmacy 36.4 ml/min; Est GFR (African American) 48.8; Est GFR (Non-African American) 42.1
[2020-04-11] MEDS: ACETAMINOPHEN 325 MG TAB PO PRN (07:18)
[2020-04-11] MEDS: AMLODIPINE BESYLATE 5 MG TAB PO SCH (07:19)
[2020-04-11] MEDS: allopurinoL 100 MG TAB PO SCH (07:19)
[2020-04-11] MEDS: MULTIVITAMIN TAB PO SCH (07:19)
[2020-04-11] MEDS: hydroCHLOROthiazide 25 MG TAB PO SCH (07:19)
[2020-04-11] MEDS: AZITHROMYCIN 250 MG TAB PO SCH (07:20)
[2020-04-11] MEDS: ATORVASTATIN 20 MG TAB PO SCH (07:20)
[2020-04-11] MEDS: CLOPIDOGREL BISULFATE 75 MG TAB PO SCH (07:21)
[2020-04-11] MEDS: ATOVAQUONE 750 MG/5 ML UDC PO SCH ×2 (07:21→21:37)
[2020-04-11] MEDS: lisinopriL 20 MG TAB PO SCH (07:23)
[2020-04-11] MEDS ORDERED: VANCOMYCIN HCL 1,000 MG in SODIUM CHLORIDE 0.9% 250 ML IV ONE (07:45)
[2020-04-11] MEDS: INSULIN ASPART 100 UNITS/ML 3 ML PEN SC SCH ×4 (09:47→21:38)
[2020-04-11] MEDS: INSULIN GLARGINE SOLOSTAR 100 UNITS/ML 3 ML PEN SC SCH ×2 (09:47→21:35)
--- NOTE | 2020-04-11 11:09 | Pharmacy Report ---
Pharmacy Abx Dose Short Note - Date of Service April 11, 2020 - Assessment & Plan Assessment 69 year old M receiving vancomycin, azithromycin, and atovaquone for treatment of 1 of 2 positive blood cultures (gram positive cocci in clusters) and suspected babesiosis. Blood cultures still pending - may represent contamination? Will follow culture. Day # 2 of antimicrobial therapy. Plan Vancomycin * Random level of 10.6 mcg/mL is subtherapeutic * Based on this level, estimated Ke: 0.062 and t1/2 of ~11 * Will dose at 1 g IV q12h and obtain trough tomorrow morning * This is prior to steady state, but will do so in the interest of safety in setting of unstable renal function * Goal trough level for bacteremia (unknown source) : 15 to 20 mcg/mL * Trough level ordered for 04/12/20 @0930 Atovaquone 750 mg PO BID and azithromycin 500 mg PO daily - appropriate for babesiosis * Consider IV azithromycin if patient does not improve with current regimen Pharmacy will continue to follow and will adjust dose/frequency as necessary. Thank you.
[2020-04-11 11:59] LABS: Basophils # (auto) 0.02 K/uL (0-0.2); Basophils % (auto) 0.4 %; Eosinophils # (auto) 0.04 K/uL (0-0.5); Eosinophils % (auto) 0.8 %; Hematocrit (blood only) 22.5 % (42-52); Hemoglobin 7.7 g/dL (14.0-18.0); Immature Granulocytes # (auto) 0.05 K/uL (0.00-0.02); Lymphocytes # (auto) 2.11 K/uL (1.2-3.4); Lymphocytes % (auto) 41.1 %; Mean Corpuscular Hemoglobin 32.4 pg (25-34); Mean Corpuscular Hgb Conc 34.2 g/dL (32-36); Mean Corpuscular Volume 94.5 fL (80-100); Mean Platelet Volume 9.8 fL (7.4-10.4); Monocytes # (auto) 0.67 K/uL (0.11-0.59); Monocytes % (auto) 13.1 %; Neutrophils # (auto) 2.24 K/uL (1.4-6.5); Neutrophils % (auto) 43.6 %; Platelet Count 187 K/uL (130-400); RDW Coefficient of Variation 16.6 % (11.5-14.5); RDW Standard Deviation 57.3 fL (36.4-46.3); Red Blood Count 2.38 M/uL (4.7-6.1); White Blood Count 5.13 K/uL (4.8-10.8)
[2020-04-11 12:22] LABS: Polychromasia 1+
[2020-04-11 12:30] LABS: BUN Creatinine Ratio 25.4 (10-20); Calcium 8.2 mg/dl (8.5-10.1); Creatinine Clr Calc Pharmacy 36.4 ml/min; Est GFR (African American) 48.8; Est GFR (Non-African American) 42.1; Potassium 4.8 mmol/L (3.5-5.1)
[2020-04-11 15:18] LABS: Basophils # (auto) 0.02 K/uL (0-0.2); Basophils % (auto) 0.4 %; Eosinophils # (auto) 0.03 K/uL (0-0.5); Eosinophils % (auto) 0.5 %; Hematocrit (blood only) 22.1 % (42-52); Hemoglobin 7.5 g/dL (14.0-18.0); Immature Granulocytes # (auto) 0.04 K/uL (0.00-0.02); Immature Granulocytes % (auto) 0.7 %; Lymphocytes % (auto) 38.4 %; Mean Corpuscular Hemoglobin 32.2 pg (25-34); Mean Corpuscular Hgb Conc 33.9 g/dL (32-36); Mean Corpuscular Volume 94.8 fL (80-100); Mean Platelet Volume 9.1 fL (7.4-10.4); Monocytes # (auto) 0.66 K/uL (0.11-0.59); Monocytes % (auto) 12.1 %; Neutrophils # (auto) 2.62 K/uL (1.4-6.5); Neutrophils % (auto) 47.9 %; Platelet Count 194 K/uL (130-400); RDW Coefficient of Variation 16.5 % (11.5-14.5); RDW Standard Deviation 56.5 fL (36.4-46.3); Red Blood Count 2.33 M/uL (4.7-6.1); White Blood Count 5.47 K/uL (4.8-10.8)
[2020-04-11 15:44] LABS: Polychromasia 1+; Spherocytes Occasional
[2020-04-11] MEDS: VANCOMYCIN HCL 1,000 MG in SODIUM CHLORIDE 0.9% 250 ML IV SCH (21:38)
[2020-04-11] MEDS: ALPRAZolam 0.25 MG TABLET PO PRN (21:45)
--- NOTE | 2020-04-11 22:40 | Hospitalist Progress Note ---
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 Patient with remote history of known tick bites, none recently reported. No international travel history. He is presently afebrile, HD stable and non-toxic in appearance. No respiratory complaints. Labs reveal normochromic/normocytic anemia with Hgb=8.8, Hct=25.8 (down from 15.5 and 44.9, respectively in September 2018). Other laboratory abnormalities include Of=485, CAROL with BUN=77 and Cr=2.97. Tbili=1.4 and Procalcitonin=1.09. Lyme IgM and IgG is negative. No schistocytes noted on my review of slide. -Admit to medical floor -Awaiting results of Babesia microti IgG and IgM -Patient has signs of babesia. will continue to treat as state below. -Babesiosis DNA PCR has also been sent - this reportedly takes appx 4 days and will be resulted in Miscellaneous -Will treat with Atovaquone 750mg po BID and Azithromycin 500mg po BID -Hemoglobin has been stable in the 7 range. will continue to monitor. Possible bacteremia: awaiting cultures. (2) HTN (hypertension): Blood pressure well controlled at present. Patient was previously admitted for hypotension thought to be secondary to medication effects + dehy dration -Hold HCTZ and Lisinopril due to elevation in BUN and Cr -Continue Amlodipine -Continue Clonidine patch -Continue to monitor (3) CAROL (acute kidney injury): Elevated BUN and Cr to 77 and 2.97 (prior 27 and 1.47, respectively in september 2018). ?prerenal azotemia vs result from Babesiosis infection -IVF, NSS at 80mL/hr x 2 liters -Repeat labs in AM -Avoid nephrotoxic agents -Renal dosing where appropriate (4) HLD (hyperlipidemia): Chronic -Continue Atorvastatin 20mg po daily (5) DMII (diabetes mellitus, type 2): Chronic. Blood sugar well controlled at 116 currently. Last HbgA1C in September 2018 = 6.8 -Hold Metformin, Linagliptin while inpatient -Check HgbA1C -Lantus 5u BID with ISS, goal blood sugar 100 - 140 Updated family Admission and Anticipated Discharge Date Admission Date: April 09, 2020 Subjective 69 yo male reports feeling better. He is still feeling relatively tired today. Review of Systems Review of Systems: All systems reviewed & are unremarkable except as noted in HPI & below Physical Exam Physical Exam: General: patient resting comfortably, NAD, non-toxic in appearance, AA&O x 4 Skin: warm, dry, intact, no rashes or lesions HEENT: NC/AT, PERRL, EOMI, slight scleral icterus, conjunctiva without injection, external ear normal to inspection and nontender, nares patent, moist mucus membranes, dentition intact, no oropharyngeal lesions, neck supple, trachea midline, no LAD, no thyromegaly, no JVD Heart: +S1/S2, regular, no m/r/g Lungs: equal air entry bilaterally, no rales/rhonchi/wheezes Abd: +BS, soft, NT/ND, no masses/organomegaly/ascites Ext: warm, 2+ pulses in UE/LE bilaterally, no clubbing/cyanosis or edema Neuro: nonfocal, patient AA&O x 4, speech intact, no facial droop, moving all extremities on command with equal strength 5/5 Results & Data Results & Data ([facility]) Vital Signs (Past 12 Hours) Vital Signs Temp Pulse Resp BP Pulse Ox 04/11/20 16:15 37.1 C 77 16 118/68 100 PG Care Time/CCT Total # of Minutes Spent Total Time Spent with Patient: Total time spent is greater than 50% in coordination of care (as documented) at patient's floor/unit and/or counseling patient: Coding Level of Care Code 78161 Subseq Hosp Care Lvl 2 Diagnoses Babesiosis B60.0 HTN (hypertension) I10 Hypertension type: essential hypertension CAROL (acute kidney injury) N17.9 HLD (hyperlipidemia) E78.5 Hyperlipidemia type: unspecified DMII (diabetes mellitus, type 2) E11.9 Diabetes mellitus complication status: without complication Diabetes mellitus remote computer terminal operator insulin use: without remote computer terminal operator use Time Spent (min) 25 (1) DMII (diabetes mellitus, type 2) Diabetes mellitus complication status: without complication Diabetes mellitus remote computer terminal operator insulin use: without shelter use Qualified Code(s): E11.9 - Type 2 diabetes mellitus without complications (2) HLD (hyperlipidemia) Hyperlipidemia type: unspecified Qualified Code(s): E78.5 - Hyperlipidemia, unspecified (3) HTN (hypertension) Hypertension type: essential hypertension Qualified Code(s): I10 - Essential (primary) hypertension
[2020-04-12] MEDS: ACETAMINOPHEN 325 MG TAB PO PRN (00:18)
[2020-04-12] MEDS: CHECK CLONIDINE PATCH PLACEMENT SCH ×2 (00:38→09:15)
[2020-04-12] MEDS: hydroCHLOROthiazide 25 MG TAB PO SCH (09:18)
[2020-04-12] MEDS: ATOVAQUONE 750 MG/5 ML UDC PO SCH (09:18)
[2020-04-12] MEDS: ATORVASTATIN 20 MG TAB PO SCH (09:18)
[2020-04-12] MEDS: MULTIVITAMIN TAB PO SCH (09:18)
[2020-04-12] MEDS: CLOPIDOGREL BISULFATE 75 MG TAB PO SCH (09:19)
[2020-04-12] MEDS: AZITHROMYCIN 250 MG TAB PO SCH (09:19)
[2020-04-12] MEDS: AMLODIPINE BESYLATE 5 MG TAB PO SCH (09:19)
[2020-04-12] MEDS: lisinopriL 20 MG TAB PO SCH (09:19)
[2020-04-12] MEDS: allopurinoL 100 MG TAB PO SCH (09:20)
[2020-04-12] MEDS: INSULIN GLARGINE SOLOSTAR 100 UNITS/ML 3 ML PEN SC SCH (09:22)
[2020-04-12] MEDS: INSULIN ASPART 100 UNITS/ML 3 ML PEN SC SCH ×2 (09:24→13:34)
[2020-04-12 09:30] LABS: Basophils # (auto) 0.01 K/uL (0-0.2); Basophils % (auto) 0.2 %; Eosinophils # (auto) 0.06 K/uL (0-0.5); Eosinophils % (auto) 1.2 %; Hematocrit (blood only) 23.5 % (42-52); Immature Granulocytes # (auto) 0.06 K/uL (0.00-0.02); Immature Granulocytes % (auto) 1.2 %; Lymphocytes # (auto) 1.99 K/uL (1.2-3.4); Lymphocytes % (auto) 40.9 %; Mean Corpuscular Hemoglobin 32.1 pg (25-34); Mean Corpuscular Volume 94.4 fL (80-100); Monocytes # (auto) 0.56 K/uL (0.11-0.59); Monocytes % (auto) 11.5 %; Neutrophils # (auto) 2.18 K/uL (1.4-6.5); Platelet Count 214 K/uL (130-400); RDW Coefficient of Variation 16.5 % (11.5-14.5); RDW Standard Deviation 56.3 fL (36.4-46.3); Red Blood Count 2.49 M/uL (4.7-6.1); White Blood Count 4.86 K/uL (4.8-10.8)
[2020-04-12] MEDS ORDERED: VANCOMYCIN TROUGH ONE (09:30)
[2020-04-12 10:00] LABS: Est GFR (African American) 53.1; Est GFR (Non-African American) 45.8
[2020-04-12 10:01] LABS: Albumin Level 3.2 gm/dl (3.4-5.0); BUN Creatinine Ratio 24.6 (10-20); Bilirubin Direct 0.3 mg/dl (0-0.2); Calcium 8.1 mg/dl (8.5-10.1); Creatinine Clr Calc Pharmacy 39.8 ml/min; Est GFR (African American) 54.4; Est GFR (Non-African American) 46.9; Potassium 4.6 mmol/L (3.5-5.1)
[2020-04-12 10:04] LABS: Total Protein 7.3 gm/dl (6.4-8.2)
[2020-04-12] MEDS: VANCOMYCIN HCL 1,000 MG in SODIUM CHLORIDE 0.9% 250 ML IV SCH (10:11)
--- NOTE | 2020-04-12 12:29 | Pharmacy Report ---
Pharmacy Abx Dose Short Note - Date of Service April 12, 2020 - Assessment & Plan Laboratory Tests 04/12/20 04/12/20 04/12/20 09:17 09:18 09:18 WBC 4.86 Creatinine 1.48 H Est Cr Clr Drug Dosing 39.8 Vancomycin Trough 18.2 Assessment 69 year old M receiving PO Azithromycin + Atovaquone for treatment of babesiosis. Spoke with Lab, do think BC growing enterococcus, staph and strep likely contaminate, other 2 BC no growth, relayed info to hospitalist. Day # 3 of antimicrobial therapy. -Awaiting results of Babesia microti IgG and IgM -Babesiosis DNA PCR has also been sent - this reportedly takes appx 4 days and will be resulted in Miscellaneous Plan Vancomycin * Trough level of 18.2 mcg/mL is therapeutic * Continue dose of 1000 mg IV every 12 hours * Trough level ordered for: 04/14/20 Pharmacy will continue to follow and will adjust dose/frequency as necessary. Thank you.
[2020-04-12] MEDS ORDERED: AZITHROMYCIN 250 MG TAB PO ONE (17:45)
[2020-04-14] MEDS ORDERED: VANCOMYCIN TROUGH ONE (09:30)
--- NOTE | 2020-04-20 22:32 | Discharge Summary ---
Date of Service April 12, 2020 Admission HPI Per Admitting Provider Ousmane Boateng is a pleasant 69yo C male with history of HTN, HLP, DM. He reports appx one year of fatigue and episodic fevers/weakness. These episodes have become more intense and frequent since 15 March 2020. He reports malaise, diffuse weakness, fevers, chills, body aches and stiff joints. Patient spends a lot of time outdoors camping at [place]. He has had tick bites in the past but none recently. He denies CP/SOB/cough/loss of taste or smell. He has not travelled recently nor been in contact with any Covid-19 positive individuals. 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 He was administered Atovaquone and Azithromycin in the ER. Rapid testing for SARS-CoV-2 - NEGATIVE ER Course: Tylenol 1gm, Atovaquone 750mg, Azithromycin 500mg IV, Cefepime 2gm IV, NSS Principal Diagnosis babesiosis Discharge Exam General: patient resting comfortably, NAD, non-toxic in appearance, AA&O x 4 Skin: warm, dry, intact, no rashes or lesions HEENT: NC/AT, PERRL, EOMI, slight scleral icterus, conjunctiva without injection, external ear normal to inspection and nontender, nares patent, moist mucus membranes, dentition intact, no oropharyngeal lesions, neck supple, trachea midline, no LAD, no thyromegaly, no JVD Heart: +S1/S2, regular, no m/r/g Lungs: equal air entry bilaterally, no rales/rhonchi/wheezes Abd: +BS, soft, NT/ND, no masses/organomegaly/ascites Ext: warm, 2+ pulses in UE/LE bilaterally, no clubbing/cyanosis or edema Neuro: nonfocal, patient AA&O x 4, speech intact, no facial droop, moving all extremities on command with equal strength 5/5 Discharge Data Allergies Allergy/AdvReac Type Severity Reaction Status Date / Time No Known Allergies Allergy Unverified 04/09/20 21:35 Consultations 04/09/20 19:54 ED Decision to Admit Stat Hospital Course (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 Patient with remote history of known tick bites, none recently reported. No international travel history. He is presently afebrile, HD stable and non-toxic in appearance. No respiratory complaints. Labs reveal normochromic/normocytic anemia with Hgb=8.8, Hct=25.8 (down from 15.5 and 44.9, respectively in September 2018). Other laboratory abnormalities include Cy=281, CAROL with BUN=77 and Cr=2.97. Tbili=1.4 and Procalcitonin=1.09. Lyme IgM and IgG is negative. No schistocytes noted on my review of slide. -Admit to medical floor -Awaiting results of Babesia microti IgG and IgM -Patient has signs of babesia. will continue to treat as state below. -Babesiosis DNA PCR has also been sent - this reportedly takes appx 4 days and will be resulted in Miscellaneous -Will treat with Atovaquone 750mg po BID and Azithromycin 500mg po BID -Hemoglobin has been stable in the 7 range. will continue to monitor. Possible bacteremia: ruled out. (2) HTN (hypertension): Blood pressure well controlled at present. Patient was previously admitted for hypotension thought to be secondary to medication effects + d ehydration -Hold HCTZ and Lisinopril due to elevation in BUN and Cr -Continue Amlodipine -Continue Clonidine patch -Continue to monitor (3) CAROL (acute kidney injury): CKD stage 3 Elevated BUN and Cr to 77 and 2.97 (prior 27 and 1.47, respectively in september 2018). ?prerenal azotemia vs result from Babesiosis infection -IVF, NSS at 80mL/hr x 2 liters -Repeat labs in AM -Avoid nephrotoxic agents -Renal dosing where appropriate (4) HLD (hyperlipidemia): Chronic -Continue Atorvastatin 20mg po daily (5) DMII (diabetes mellitus, type 2): Chronic. Blood sugar well controlled at 116 currently. Last HbgA1C in September 2018 = 6.8 -Hold Metformin, Linagliptin while inpatient -Check HgbA1C -Lantus 5u BID with ISS, goal blood sugar 100 - 140 Updated family Total Time Total Time Spent Total Time Spent (In Minutes): 32 Total Time Includes: Examination of the Patient, Discharge Planning and Medication Reconciliation Discharge Plan Discharge Items Patient Disposition: Home - Self-Care Reason For Visit: BABESIOSIS Discharge Diagnosis: Babesiosis Condition on Discharge: Fair Activity: Resume your previous activity Non-emergency contact: Primary Care Provider Call non-emergency contact if: you have any medication questions Follow-up/Referrals: Isaías Whitmore III, CRNP [Primary Care Provider] - Diet: Carb Consistent or DM2 and Heart Healthy Addtl Attending Provider Instructions: You have been hospitalized for an acute medical problem. During your stay at [facility], we have made an effort to correct the problem that brought you to the hospital while keeping you as comfortable as possible. Medications were used to bring your condition under control and your discharge instructions will include directions for any medications you should take after leaving the hospital. Please make sure you see your Primary Care Provider as part of your follow up plan. Will recommend to continue treatment for 7 more days and check blood work in about 1 week. Check blood work in 2 days and 7 days. Pending Studies at Discharge: No Stand-Alone Forms: My [facility], Smoking Cessation Medications and DC Order Prescriptions: New atovaquone 750 mg/5 mL suspension 750 mg PO BID Qty: 70 RF: 0 Continued metformin 500 mg tablet 500 mg PO BID RF: 0 amlodipine 5 mg tablet 5 mg PO DAILY RF: 0 alprazolam 0.25 mg tablet 0.25 mg PO BID PRN (Reason: Anxiety) RF: 0 hydrochlorothiazide 25 mg tablet 25 mg PO DAILY RF: 0 multivitamin [Multiple Vitamins] Tablet 1 tab PO DAILY RF: 0 lisinopril 20 mg tablet 20 mg PO DAILY Qty: 30 RF: 0 atorvastatin [Lipitor] 20 mg tablet 20 mg PO DAILY RF: 0 clonidine [Aaeqzqzl-BBG-2] 0.2 mg/24 hr patch weekly 1 patch topical WK RF: 0 clopidogrel [Plavix] 75 mg tablet 75 mg PO DAILY RF: 0 allopurinol [Zyloprim] 100 mg tablet 100 mg PO DAILY RF: 0 Tradjenta 5 mg tablet 5 mg PO DAILY RF: 0 aspirin [Aspir-81] 81 mg Tablet,Delayed Release (Dr/Ec) 81 mg PO DAILY RF: 0 Discharge Orders: Discharge Order (Routine); Ordered 04/12/20 Ordered By: Houston Quispe/Other Patient Handouts: Tick Bites Admission Data Admit Date/Time: 04/09/20 21:15 Attending Provider: Houston Austin Admit Provider: Lucía Valerio Primary Care Provider: Isaías Whitmore III Other Providers: Lucía Valerio Other Interventions: Discharge Summary Assessment (RN) Last Done: 04/12/20 15:41 DC Date/Time DO NOT enter until pt leaves facility: 04/12/20 18:15 Coding Level of Care Code D/C Day Management >30 mins Diagnoses Babesiosis B60.0 HTN (hypertension) I10 Hypertension type: essential hypertension CAROL (acute kidney injury) N17.9 HLD (hyperlipidemia) E78.5 Hyperlipidemia type: unspecified DMII (diabetes mellitus, type 2) E11.9 Diabetes mellitus termite technician insulin use: without shelter use Diabetes mellitus complication status: without complication
== END 2020-04-12 18:15 | disposition home or self-care (01) | DRG 868 ==
LOC: ED 17:53 → 3N 21:15 → SUATTDRO 21:15 → 3N 23:48